=== PATIENT | male | born 1985 | race Caucasian/White ===

== ENCOUNTER 2017-08-20 15:10 | Emergency (ER) | payer OTHER ==
[~2017-08-20] VITALS: Ht 185.4 cm; Wt 148.0 kg
[~2017-08-20 15:10] MED LIST: ANTIVERT25 MG PO; BACTRIM,SEPT1 TABLET PO; BELSOMRA15 MG PO; BENTYL10 MG PO; BUPROPION XL150 MG PO; BUPROPION XL300 MG; CARAFATE1 GM PO; CLEOCIN300 MG PO; CLONIDINE HCL0.2 MG PO; DIAZEPAM10 MG PO; GEODON20 MG PO; GEODON40 MG PO; LEVEMIR FL100 UNIT/1 SC; METFORMIN HCL500 M1 PO; METFORMIN HCL500 MG PO; NIACIN ER500 MG PO; NOHOMEMEDS; PRAVASTATIN SOD40 MG PO; PYRIDIUM100 MG PO; SANTYL30 GM TP; SSD25GM TP; STRATTERA10 MG PO; VIVANZ PO; XANAX0.5 MG PO; ZANTAC150 MG PO; ZIPRASIDONE HCL40 MG PO; ZOFRAN4 MG PO
[2017-08-20 16:29] LABS: HEMOGLOBIN 15.3 G/DL (12.5-16.6); MCH 30.7 PG (29.0-34.0); MCHC 36.4 G/DL (30.0-36.0); MCV 84.2 FL (86-99); PLATELET COUNT 382 K/uL (156-360); RBC DIS.WIDTH-CV 12.8 % (11.8-14.6); RBC DIS.WIDTH-SD 38.5 % (39-53); RED BLOOD COUNT 4.99 M/uL (4.00-5.50); WHITE BLOOD COUNT 10.9 K/uL (4.1-10.2)
[2017-08-20 16:40] LABS: CHLORIDE 102 mEq/L (99-109); POTASSIUM 4.2 mEq/L (3.7-5.4); SODIUM 139 mEq/L (136-147)
[2017-08-20 16:42] LABS: GLUCOSE 316 mg/dL (70-99); TOTAL PROTEIN 7.3 g/dL (6.4-8.3)
[2017-08-20 16:44] LABS: TOTAL BILIRUBIN 0.2 mg/dL (0.0-1.0)
[2017-08-20 16:46] LABS: ALKALINE PHOSPHATASE 85 IU/L (3-129); CREATININE 0.9 mg/dL (0.6-1.3); GFR ESTIMATE (CALCULATED) > 59 mL/min/ (58.99-99999)
[2017-08-20 16:47] LABS: UREA NITROGEN (BUN) 13 mg/dL (9-23)
[2017-08-20 16:48] LABS: AST (GOT) 28 IU/L (2-34)
[2017-08-20 16:49] LABS: ALT (GPT) 30 IU/L (3-49)
[2017-08-20] MEDS ORDERED: REGLAN10 MG PO (17:00)
[2017-08-20 17:30] VITALS: BP 136/69
== END 2017-08-20 18:13 | disposition home or self-care (01) ==
LOC: EME 15:10 → EXP 15:10
PROVIDERS: Nurse Practitioner Family
DX: R51 Headache (principal); J32.4 Chronic pansinusitis; F17.200 Nicotine dependence, unspecified, uncomplicated; E11.9 Type 2 diabetes mellitus without complications; Z79.84 Long term (current) use of oral hypoglycemic drugs; F90.9 Attention-deficit hyperactivity disorder, unspecified type; G47.30 Sleep apnea, unspecified; F32.9 Major depressive disorder, single episode, unspecified; K21.9 Gastro-esophageal reflux disease without esophagitis; Z88.0 Allergy status to penicillin; Z88.1 Allergy status to other antibiotic agents
CPT/HCPCS: 70450; 80053; 85027; 99281; 99283; J1885

== ENCOUNTER 2017-09-09 20:27 | Emergency (ER) | payer OTHER ==
[~2017-09-09] VITALS: Ht 185.4 cm; Wt 146.1 kg
[~2017-09-09 20:27] MED LIST changes: +REGLAN10 MG PO
[2017-09-09 21:42] LABS: HEMATOCRIT 43.4 % (38.0-50.0); HEMOGLOBIN 16.2 G/DL (12.5-16.6); MCH 31.2 PG (29.0-34.0); MCHC 37.3 G/DL (30.0-36.0); MCV 83.5 FL (86-99); PLATELET COUNT 290 K/uL (156-360); RBC DIS.WIDTH-SD 39.1 % (39-53); WHITE BLOOD COUNT 10.6 K/uL (4.1-10.2)
[2017-09-09 21:54] LABS: CHLORIDE 98 mEq/L (99-109); POTASSIUM 4.2 mEq/L (3.7-5.4); SODIUM 134 mEq/L (136-147)
[2017-09-09 21:55] LABS: GLUCOSE 324 mg/dL (70-99)
[2017-09-09 21:59] LABS: CREATININE 1.1 mg/dL (0.6-1.3); GFR ESTIMATE (CALCULATED) > 59 mL/min/ (58.99-99999); SERUM ETHYL ALCOHOL < 10 mg/dL
[2017-09-09 22:00] LABS: UREA NITROGEN (BUN) 12 mg/dL (9-23)
[2017-09-09 23:39] VITALS: BP 142/72
== END 2017-09-09 23:42 | disposition home or self-care (01) ==
LOC: EME 20:27
PROVIDERS: Emergency Medicine
DX: F41.9 Anxiety disorder, unspecified (principal); F31.62 Bipolar disorder, current episode mixed, moderate; E11.9 Type 2 diabetes mellitus without complications; Z79.84 Long term (current) use of oral hypoglycemic drugs; K21.9 Gastro-esophageal reflux disease without esophagitis; F90.9 Attention-deficit hyperactivity disorder, unspecified type; G47.30 Sleep apnea, unspecified; Z88.0 Allergy status to penicillin; Z88.1 Allergy status to other antibiotic agents; Z87.891 Personal history of nicotine dependence
CPT/HCPCS: 80048; 85027; 90839; 99281; 99282; G0480